=== PATIENT | female | born 1975 | race Two or more races ===

== ENCOUNTER 2024-12-29 16:04 | Emergency (ER) | payer MEDICAID, SELFPAY ==
[2024-12-29 16:06] VITALS: BP 131/84; PULSE 84; RESP 16; TEMP 37; O2SAT 97
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
[2024-12-29 16:16] VITALS: PULSE 82; RESP 18; O2SAT 96; BMI 25.9
[2024-12-29] MEDS: ACETAMINOPHEN 500 MG TABLET PO (16:33)
[2024-12-29] MEDS: DIPHTH,PERTUSS(ACELL),TET VAC 0.5 ML SYR- ADULT IMi (16:37)
== END 2024-12-29 18:23 | disposition home or self-care (01) ==
PROVIDERS: Emergency Provider Emergency Medicine; PCP Family Medicine
DX: S50.312A Abrasion of left elbow, initial encounter (principal); V89.9XXA Person injured in unspecified vehicle accident, initial encounter; Z23 Encounter for immunization
CPT/HCPCS: 73080; 90471; 90715; 99283; A9270

== ENCOUNTER 2025-03-10 16:07 | Emergency (ER) | payer MEDICAID, SELFPAY ==
[2025-03-10 16:08] VITALS: BMI 26.3
[2025-03-10 16:32] VITALS: BP 130/84; PULSE 104; RESP 18; TEMP 37.4; O2SAT 97
--- NOTE | 2025-03-10 16:38 | XR_ITS ---
Examination: PA chest single view Technique: Upright PA chest single view Date and time: March 10, 2025, 1704 hrs., Comparison 02/17/2010 Indications: Coughing beginning 3 days ago. Findings: Normal heart size. Lungs are clear. The osseous structures are intact Impression: No active disease
--- NOTE | 2025-03-10 16:39 | PD.EDRME ---
Rapid Medical Screening Exam E Arrival date/time: 03/10/25 16:07 This is a 49-year-old female that comes in with complaints of bodyaches, loss of appetite, leg pain, and cough. Patient reports that she was recently seen by her primary doctor and was diagnosed with H. pylori. Patient was started on antibiotics and has been on the antibiotics for about 3 days. Patient states she was already feeling sick prior to this but now feels worse. Patient denies abdominal pain but is nauseous. Patient also complains of on and off fever. I have greeted and performed a focused initial assessment of this patient. Initial appropriate labs ordered at this time. A comprehensive ED assessment and evaluation of the patient and analysis of all test and completion of medical decision making process will be conducted by additional ED provider. Chief Complaint: General Adult/Misc Complain Time Seen by Provider: 03/10/25 16:10 Vital signs: Vital Signs Temperature 99.4 F 03/10/25 16:32 Pulse Rate 104 H 03/10/25 16:32 Respiratory Rate 18 03/10/25 16:32 Blood Pressure 130/84 03/10/25 16:32 Pulse Oximetry (%) 97 03/10/25 16:32 Oxygen Delivery Method Room Air 03/10/25 16:32
[2025-03-10 17:02] LABS: Collection Type, Urine Voided
[2025-03-10 17:06] LABS: Basophils # (Auto) 0.0 Thou/mm3 (0.0-0.2); Basophils % (Auto) 1 % (0-2.5); Eosinophils # (Auto) 0.2 Thou/mm3 (0.0-0.5); Eosinophils % (Auto) 3 % (0-10); Hematocrit 37.9 % (36.0-46.0); Hemoglobin 12.9 g/dL (12.0-16.0); Immature Granulocytes Auto 0.02 Thou/mm3 (0.00-0.00); Lymphocytes # (Auto) 2.3 Thou/mm3 (1.0-4.8); Lymphocytes % (Auto) 28 % (10-50); Mean Corpuscular HGB Conc 34.0 g/dl (31.0-37.0); Mean Corpuscular Hemoglobin 31.1 pg (25.0-35.0); Mean Corpuscular Volume 91 fL (80-100); Monocytes # (Auto) 0.3 Thou/mm3 (0.0-0.8); Monocytes % (Auto) 4 % (0-12); Neutrophils # (Auto) 5.4 Thou/mm3 (1.8-7.7); Neutrophils % (Auto) 65 % (37-80); Nucleated Red Blood Cell # 0.00 Thou/mm3 (0.00-0.00); Nucleated Red Blood Cell % 0 /100 WBC (0); Platelet Count 160 Thou/mm3 (140-440); RDW Standard Deviation 43.6 fL (36.4-46.3); Red Blood Count 4.15 Miln/mm3 (4.00-5.20); White Blood Count 8.3 Thou/mm3 (3.6-11.0)
[2025-03-10 17:29] LABS: HCG Qualitative,Urine Negative
[2025-03-10 17:30] LABS: Alanine Aminotransferase 23 U/L (10-49); Albumin, Serum 3.8 gm/dL (3.5-5.0); Albumin/Globulin Ratio 1.5 (1.2-2.2); Alkaline Phosphatase 94 U/L (46-116); Anion Gap 4 (7-16); Aspartate Amino Transferase 26 U/L (0-34); BUN/Creatinine Ratio 6 Ratio (12-20); Bilirubin,Total 0.2 mg/dL (0.3-1.2); Blood Urea Nitrogen 5 mg/dL (9-23); Calcium 8.7 mg/dL (8.3-10.6); Calcium (Corrected) 8.9 mg/dL (8.5-10.1); Carbon Dioxide 30.4 mMol/L (20.0-31.0); Chloride 107 mMol/L (98-107); Creatinine (Component) 0.8 mg/dL (0.6-1.3); Estimated Creatinine Clearance 75.5 mL/min (>60); Globulin 2.6 gm/dL (2.3-3.5); Glucose 104 mg/dL (74-106); Osmolality,Calculated 278 (275-295); Potassium 4.2 mMol/L (3.4-5.1); Sodium 141 mMol/L (136-145); Total Protein 6.4 gm/dL (5.7-8.2); eGFR > 60 See Note
[2025-03-10 17:31] LABS: Bilirubin,Urine Negative (Negative); Blood,Urine Negative (Negative); Clarity,Urine Clear (Clear/Hazy); Culture Indicated,Urine Not Indicated; Glucose, Urine Negative (Negative); Ketones,Urine Negative (Negative); Leukocyte Esterase,Urine Positive (Negative); Nitrite,Urine Negative (Negative); PH,Urine 7.5 (5.0-7.0); Protein,Urine Trace (Neg - Trace); RBC,Urine 1 /hpf (0-3); Specific Gravity,Urine 1.015 (1.001-1.035); Squamous Epithelial Cell,Urine 4 /hpf (0-5); Urobilinogen,Urine 2.0 mg/dL (0.0-1.0); WBC,Urine 8 /hpf (0-5)
[2025-03-10 17:32] LABS: Influenza A Ag Negative; Influenza B Ag Negative
[2025-03-10 17:33] LABS: Color,Urine Lt-Yellow (Lt Yel-Yel)
--- NOTE | 2025-03-10 18:10 | EDNOTE_ITS ---
ED General E/[facility] General Chief complaint: General Adult/Misc Complain Stated complaint: FEVER, RASH, LEG PAIN AFTER STARTING ANTIBIOTICS Time Seen by Provider: 03/10/25 16:10 Arrival date/time: 03/10/25 16:07 [facility] narrative: 03/10/25 16:07 49-year-old female with past medical history of H. pylori infection, cholecystectomy who comes in for an evaluation of abdominal pain with associated nausea and generalized weakness with a headache. Patient reports that she recently was diagnosed with H. pylori and has been taking medicines for it, however she has been having worsening abdominal pain. She also says she felt n auseous recently however did not vomit. She also says that her oral intake has not been great, and feels like she is very weak. She says that she cannot stand on her feet at times, however denies any bowel incontinence or urinary incontinence. She says no one around her is feeling at this, however one of her family members also tested positive for H. pylori. Denies any recent travel. She says she takes about 600 mg of ibuprofen 2 times a day. She has never had an endoscopy done. She says she still has her appendix, however does not have her gallbladder. She denies any history of stroke. Related Data Previous Rx's ?Medication ?Instructions ?Recorded mupirocin 2 % topical ointment 1 applic topical BID #2 2 grams 11/02/20 gabapentin 100 mg capsule 100 mg PO QDAY PRN pain 1 we ek #7 03/10/25 caps Allergies Allergy/AdvReac Type Severity Reaction Status Date / Time erythromycin base Allergy Severe GENERALIZED Verified 03/10/25 16:11 RASH Review of Systems Review of Systems Narrative Review of Systems: 12 point ROS reviewed and is otherwise negative unless stated directly in the HPI ED Exam Narrative Physical exam: General: AAOx3, NAD, French-speaking female, overweight, wearing a mask HEENT: Moist mucous membranes, conjunctiva clear, EOMI, PERRLA, Cardiovascular: S1, S2, radial pulses +2 bilat, RRR Pulmonary: CTAB bilat no cough, no wheezing GI: Slight tenderness to palpation upon right lower quadrant, no guarding, rigidity, rebound tenderness or distension, abdominal present Extremities: No presence of trace or pitting edema in lower extremities bilaterally, dorsalis pedis pulses +2 bilaterally Neuro: AAOx3, no focal motor or sensory deficits in the UE or LE bilat Psych: Good judgement, thought and behavior Course Quality Measures none Orders Category Date Time Status Bedside COVID-19 Antigen Test NOW Care 03/10/25 16:38 Active EKG (ED ONLY) *Do not use* NOW Care 03/10/25 19:00 Completed Orthostatic Vitals X1 Care 03/10/25 18:[address] head/brain wo con Stat Exams 03/10/25 19:00 Completed EKG (ED Only) Stat Exams 03/10/25 19:00 Draft XR chest 1V Stat Exams 03/10/25 16:38 Completed XR chest 1V portable Stat Exams 03/10/25 19:00 Completed CBC Stat Lab 03/10/25 17:00 Completed Comprehensive Metabolic Panel Stat Lab 03/10/25 17:00 Completed HCG Qualitative,Urine Stat Lab 03/10/25 16:46 Completed Influenza A & B Rapid Panel Stat Lab 03/10/25 16:46 Completed Magnesium Stat Lab 03/10/25 19:44 Completed TSH [Thyroid Stimulating Hormone] Stat Lab 03/10/25 19:44 Completed Troponin I Stat Lab 03/10/25 19:44 Completed Urinalysis, C/S if Indicated Stat Lab 03/10/25 16:46 Completed Acetaminophen Tab [Tylenol ES Tab] Med 03/10/25 16:41 Discontinued 1,000 mg PO X1 ONE Ibuprofen Tab [Motrin Tab] Med 03/10/25 16:41 Discontinued 800 mg PO X1 ONE Pantoprazole [Protonix] Med 03/10/25 18:45 Discontinued 40 mg PO X1 ONE Vital Signs Vital signs: Vital Signs Temperature 99.4 F 03/10/25 16:32 Pulse Rate 104 H 03/10/25 16:32 Respiratory Rate 18 03/10/25 16:32 Blood Pressure 130/84 03/10/25 16:32 Pulse Oximetry (%) 97 03/10/25 16:32 Oxygen Delivery Method Room Air 03/10/25 16:32 Critical Care Time Critical Care Time Attestation: Peptic ulcer disease, appendicitis, ulcer, dehydration, gastroenteritis Discharge Plan Plan Patient Disposition: HOME (Self Care) Prescriptions/Referrals Prescriptions/Med Rec: New gabapentin 100 mg capsule 100 mg PO QDAY PRN (Reason: pain) 7 Days Qty: 7 0RF Rx Instructions: Take one capsule by mouth as needed for pain No Action mupirocin 2 % ointment 1 applic topical BID Qty: 22 0RF Referrals: Luciano Iyer MD [Primary Care Provider, Family Practice] - In 1 week Problem List Clinical Impression: Peptic ulcer disease, Weakness generalized, H. pylori infection Patient/Caregiver Discharge Instructions Additional Instructions: Discharge instructions Follow-up with your PCP within 1 week Take gabapentin as needed for pain, take as prescribed Speak with your PCP in regards to diabetic neuropathy If you begin to have bowel or urine incontinence, come to the ER Continue taking your medicines as prescribed for your H. pylori Avoid taking any NSAIDs including ibuprofen, Advil, naproxen, meloxicam. Return to ED if your symptoms worsen or return Instrucciones para el jamie: Consulte con alex m?dico de cabecera en el plazo de germania semana. [place] gabapentina seg?n sea necesario para el dolor, seg?n lo prescrito. Hable con alex m?dico de cabecera sobre la neuropat?a diab?rona. Si comienza a tener incontinencia intestinal u urinaria, acuda a urgencias. Contin?e tomando joe medicamentos seg?n lo prescrito para la infecci?n por H. pylori. Evite yanira MARCUS, nivia ibuprofeno, Advil, naproxeno y meloxicam. Regrese a urgencias si los s?ntomas empeoran o reaparecen. Print Language: French Stand Alone Forms: Kayla Award Info., Patient Portal Info Letter MDM Narrative MDM hospital course (for use when minimal MDM required): 1848: Upon examining patient, will administer Protonix as patient does take a lot of ibuprofen and has history of peptic ulcer disease. Will also order orthostatic vitals Due to concern for orthostatic hypotension. Patient is also tachycardic at this time, and has temperature of 99.4, no leukocytosis, however will need to order CT Head for headache. Influenza A andB negative. Chest x- ray within normal limits. Labs reviewed, within normal limits. Patient does have asymptomatic bacteriuria. 2104: Spoke with patient, patient's main complaint sounds to be like lower extremity weakness, however there is no bowel incontinence or urinary continence. Patient is a newly diagnosed diabetic and is unknown how long she has had prediabetes for which can manifest diabetic neuropathy. Will give patient dose of gabapentin now to follow-up with her primary care doctor in addition to her gabapentin 1 week prescription outpatient. Patient is medically cleared for discharge with strict ER precautions. Medication Administration(s) Medication Administration History Discontinued Medications Acetaminophen (Acetaminophen 500 Mg Tablet) 1,000 mg PO X1 ONE Stop: 03/10/25 16:42 Last Admin: 03/10/25 18:23 Dose: 1,000 mg Documented By: FREDO Ibuprofen (Ibuprofen Tab 400 Mg Tablet) 800 mg PO X1 ONE Stop: 03/10/25 16:42 Last Admin: 03/10/25 18:23 Dose: 800 mg Documented By: FREDO Pantoprazole Sodium (Pantoprazole 40 Mg Tablet) 40 mg PO X1 ONE Stop: 03/10/25 18:46 Last Admin: 03/10/25 19:10 Dose: 40 mg Documented By: SCOOYB
[2025-03-10] MEDS: ACETAMINOPHEN 500 MG TABLET 1000 MG PO (18:23)
[2025-03-10] MEDS: IBUPROFEN TAB 400 MG TABLET 800 MG PO (18:23)
--- NOTE | 2025-03-10 19:00 | EKG_ITS ---
[facility] Test Date: 2025-03-10 Pat Name: GENARO MOON Department: Room: - Gender: Female Analyst Business Analysis: : 1975 Requested By: Tiburcio Mcfarlane Order Number: [id number] Reading MD: Tiburcio Mcfarlane Measurements Intervals [place] Rate: 94 P: 60 MA: 124 QRS: 58 QRSD: 89 T: 47 QT: 352 QTc: 441 Interpretive Statements SINUS RHYTHM No previous ECG available for comparison /store/S0/[id number].pdf
--- NOTE | 2025-03-10 19:00 | XR_ITS ---
Examination: CT brain head without contrast. 2-D sagittal coronal reconstructions Date and time of exam:March 10, 2025, 1928 hrs. Indications: Onset generalized head pain today. CTDI: vol (mGy):44.7 DLP: (mGycm):807 Technique: Multiple CT axial sections of the brain have been obtained, 5 mm slice thickness. Contrast has not been administered. 2-D sagittal, coronal reconstructions have been obtained Low dose protocols were performed. One or more of the following dose reduction techniques were used; automated exposure control, adjustment of the mA and/or KV according to patient size, use of iterative reconstruction technique. Findings: No significant ventricular enlargement. Intra-axial or extra-axial hemorrhage density is not seen. No mass effect or midline shift Basal cisterns are not remarkable. Fourth ventricle is midline. Cranial vault intact. Significant ethmoid and maxillary antral chronic sinusitis Impression: Negative for acute hemorrhage, mass effect or midline shift
--- NOTE | 2025-03-10 19:00 | XR_ITS ---
Examination: PA chest single view Technique: Upright PA chest single view Date and time: March 10, 2025, 1903 hrs., Comparison March 10, 2025 Indications: Coughing shortness of breath beginning 3 days ago. Findings: Normal heart size. Lungs are clear. The osseous structures are intact Impression: No active disease
[2025-03-10] MEDS: PANTOPRAZOLE 40 MG TABLET PO (19:10)
[2025-03-10 19:51] VITALS: BP 109/71; BP 112/76; BP 97/65; PULSE 103; PULSE 89; PULSE 98; RESP 16; TEMP 36.8; O2SAT 96
[2025-03-10 20:31] LABS: Magnesium 1.7 mg/dL (1.6-2.6); Thyroid Stimulating Hormone 1.28 uIU/mL (0.55-4.78); Troponin I < 0.002 ng/mL (0.0-0.045)
[2025-03-10] MEDS: GABAPENTIN 100 MG CAPSULE PO (21:11)
[2025-03-10 21:17] VITALS: BP 124/82; PULSE 78
== END 2025-03-10 21:17 | disposition home or self-care (01) ==
PROVIDERS: Emergency Medicine; Nurse Practitioner Family; PCP Family Medicine
DX: K27.9 Peptic ulcer, site unspecified, unspecified as acute or chronic, without hemorrhage or perforation (principal); B96.81 Helicobacter pylori [H. pylori] as the cause of diseases classified elsewhere; R53.1 Weakness; R51.9 Headache, unspecified
CPT/HCPCS: 36415; 70450; 71045; 80053; 81001; 81025; 83735; 84443; 84484; 85025; 87502; 87811; 93005; 99284; A9270